=== PATIENT | male | born 1970 | race Caucasian/White ===

== ENCOUNTER → 2016-12-03 | Outpatient (CLI) | payer BC ==
[~2016-12-03] VITALS: Ht 188 cm; Wt 97.5 kg
[~2016-12-03] MED LIST: TRAMADOL 50 MG50 MG PO; VENTOLIN HFA 1818 GM INH
--- NOTE | ~2016-12-03 | HPC ---
[facility] [address] [place] [address] PAIN MANAGEMENT CONSULTATION Name: JUANI MAURICIO Room #: REG [facility]#: [id number] Admission: 12/03/16 Attend Phys: Edy Adams DO Discharge: Date of : 74 Report #: [id number] THIS REPORT FOR: //name// CC: ABIGAIL physician/PCP ESTRELLITA Adams DATE OF SERVICE: 12/03/2016 HISTORY OF PRESENT ILLNESS: The patient is a pleasant 46-year-old gentleman seen in consultation at request of Dr. Nance for assistance with management of cervical radicular pain radiating to the neck, right shoulder, arm down to the hand including the ring and fifth finger. The patient notes prior symptoms treated 4 years ago in [place] with cervical epidural injections, excellent improvement of symptoms. Pain recurred in May without antecedent trauma and overuse. The patient has had caregiver services home, physical therapy and nonsteroidal anti-inflammatory medications with nominal efficacy, has some subjective weakness in the right arm and no specific lower extremity myelopathic symptoms. Does have paresthesia into the right fourth and fifth finger. Describes constant, burning, shooting, sharp pain, rates anywhere from 5-9 on a 0-10 visual analog scale. Seems to be exacerbated with any activity, nothing seems to make it better. REVIEW OF SYSTEMS: Complete review of systems attached to chart, was gone over with the patient. He is . He smokes less than a pack a day, but has for 10 years. Does not drink alcohol to excess. Has enjoyed reasonably good health, has some reactive airway disease for which he uses an albuterol, MDI inhaler. Had a hernia surgery 40 years ago and the aforementioned cervical radicular symptoms some 4 years ago. The patient works as a assistant business manager; he continued to work despite pain. Pain impact score is fairly low averaging 33/70. PHYSICAL EXAMINATION: GENERAL: Reveals a fairly muscular, 6 feet 2 inches, 215 pound gentleman, BMI is 27.6 kilograms per meter squared. Blood pressure is 120/82, pulse 63, respirations 16. Alert and oriented to person, place and time, judged to be reasonable historian. Cervical range of motion is limited. Positive Lhermitte's. Again, fairly muscular gentleman, hard to detect. OBJECTIVE: Muscle loss, but he subjectively notes that his triceps strength is weaker on the right. Tinel's is negative, right triceps reflex is slightly diminished compared to the left. HEART: Regular rhythmical. LUNGS: Clear to auscultation. [facility] [address] [place] [address] PAIN MANAGEMENT CONSULTATION Name: JUANI MAURICIO Room #: REG [facility] Dyllan.#: [id number] Admission: 12/03/16 Attend Phys: Edy Adams DO Discharge: Date of : 74 Report #: [id number] ABDOMEN: Benign. MUSCULOSKELETAL Gait is tandem. DIAGNOSTIC STUDIES: Reviewed including x-rays of the cervical spine from 11/30/2016 noting degenerative disk disease at C5-C6 and C6-C7, loss of cervical lordosis, osteophyte formation noted in vertebral bodies 5, 6, and 7. ASSESSMENT: Symptomatic cervical radiculopathy by clinical exam. RECOMMENDATIONS: Cervical epidural injection under fluoroscopy today. Continue Aleve [id number] 2 tablets b.i.d. Follow up in 4 weeks for reevaluation. Thank you for allowing me to participate in the patient's care. I will keep you abreast of his progress. PROCEDURE: Cervical epidural injection under fluoroscopy. PROCEDURE NOTE: After written and informed consent was obtained including risk of dural puncture, spinal cord trauma, paralysis and increased pain, the patient was taken to the fluoroscopy suite and placed in the prone position, with appropriate abdominal bolstering, neck was flexed, palms under the thighs. Skin was prepped with ChloraPrep. Sterile draping was applied. Skin wheal with 1% Xylocaine was raised. A 22-gauge 3-1/2 inch epidural Tuohy needle was placed via a midline approach at the C7-T1 interspace, advanced under biplanar fluoroscopy using continuous loss of resistance. With appropriate loss of resistance at the expected depth on lateral view, the glass loss of resistance syringe was disconnected. A low volume extension tubing was connected to the needle and a 5 mL syringe. Negative aspiration for cerebrospinal fluid or blood was noted. A 1 mL of Omnipaque was injected which showed spread within the epidural space on biplanar fluoroscopy. This was followed with 80 mg of triamcinolone plus 1 mL of 1.5% preservative Xylocaine. Needle was withdrawn to the interspinous ligament, 0.5 mL of Xylocaine was used to flush the needle. The needle was then completely withdrawn. The area was cleansed. Band-Aid was applied. The patient was allowed to move off the procedure table and ambulated to the recovery room, monitored for an appropriate period of time, discharged in good and stable condition. <ELECTRONICALLY SIGNED> By: Edy Adams DO 12/04/16 0736 [id number] Edy Adams, DO /nt
[2016-12-03 13:15] VITALS: BP 120/82
== END | disposition home or self-care (01) ==
LOC: PAIN 08:22
DX: M54.12 Radiculopathy, cervical region (principal); Z87.891 Personal history of nicotine dependence

== ENCOUNTER → 2017-01-01 | Outpatient (CLI) | payer BC ==
[~2017-01-01] VITALS: Ht 188 cm; Wt 96.6 kg
--- NOTE | ~2017-01-01 | HPC ---
[facility] [place] [address] PAIN MANAGEMENT CONSULTATION Name: JUANI MAURICIO Room #: REG [facility]#: [id number] Admission: 01/01/17 Attend Phys: Edy Adams DO Discharge: Date of : 74 Report #: [id number] THIS REPORT FOR: //name// CC: [facility]IGAIL physician/PCP Edy Adams HISTORY OF PRESENT ILLNESS: The patient is a 46-year-old gentleman, prior seen on 12/03/2016 for symptomatic cervical radiculopathy, given a single cervical epidural injection. He returns to pain clinic today noting about 80% overall improvement of baseline pain, still notes that the pain interferes with function, it is particularly when he is trying to workout. Pain in the right neck, shoulder and arm. PHYSICAL EXAMINATION: Shows positive Lhermitte's in an otherwise 46-year-old gentleman. BMI is 27.3 kilograms per meter squared. Vital signs stable. ASSESSMENT: Symptomatic cervical radiculopathy. RECOMMENDATIONS: Repeat epidural injection under fluoroscopy today, follow up simply as needed, to continue Aleve [id number]. PROCEDURE: Cervical epidural injection under fluoroscopy. PROCEDURE NOTE: After written and informed consent was obtained including risk of dural puncture, spinal cord trauma, paralysis and increased pain, the patient was taken to the fluoroscopy suite and placed in the prone position, with appropriate abdominal bolstering, neck was flexed, palms under the thighs. Skin was prepped with ChloraPrep. Sterile draping was applied. Skin wheal with 1% Xylocaine was raised. A 22-gauge 3-1/2 inch epidural Tuohy needle was placed via a midline approach at the C7-T1 interspace, advanced under biplanar fluoroscopy using continuous loss of resistance. With appropriate loss of resistance at the expected depth on lateral view, the glass loss of resistance syringe was disconnected. A low volume extension tubing was connected to the needle and a 5 mL syringe. Negative aspiration for cerebrospinal fluid or blood was noted. A 1 mL of Omnipaque was injected which showed spread within the epidural space on biplanar fluoroscopy. This was followed with 80 mg of triamcinolone plus 1 mL of 1.5% preservative Xylocaine. Needle was withdrawn to the interspinous ligament, 0.5 mL of Xylocaine was used to flush the needle. The needle was then completely withdrawn. The area was cleansed. Band-Aid was applied. The patient was allowed to move off the procedure table and ambulated to the recovery room, monitored for an appropriate period of time, discharged in good and stable condition. <ELECTRONICALLY SIGNED> By: Edy Adams DO 01/06/17 0758 [id number] Edy Adams DO /nt
[2017-01-01 13:19] VITALS: BP 138/82
== END ==
LOC: PAIN 07:08
DX: M54.12 Radiculopathy, cervical region (principal); F17.210 Nicotine dependence, cigarettes, uncomplicated; E11.9 Type 2 diabetes mellitus without complications

== ENCOUNTER → 2017-09-20 | Outpatient (CLI) | payer BC ==
[~2017-09-20] VITALS: Ht 188 cm; Wt 102.0 kg
[~2017-09-20] MED LIST changes: +ALEVE220 MG PO; +IBUPROFEN 200200 M1 PO
--- NOTE | ~2017-09-20 | HPC ---
[facility] [place] [address] PAIN MANAGEMENT CONSULTATION Name: JUANI MAURICIO Room #: [facility] [id number] Admission: 09/20/17 Attend Phys: Edy Adams DO Discharge: Date of : 74 Report #: [id number] THIS REPORT FOR: //name// CC: [facility] physician/PCP Edy Adams HISTORY OF PRESENT ILLNESS: The patient is a pleasant 47-year-old gentleman, prior seen for 2 cervical epidural injections in November and December of last year with excellent improvement of symptoms. The patient returns to pain clinic today noting symptoms are beginning to recur. Pain is 5/10, but biggest issue is paresthesia in the C7 and 8 distribution affecting all the distal fingers. PHYSICAL EXAMINATION: Shows a pleasant 47-year-old gentleman, BMI is 28.9 kilograms per meter squared. Vital signs are stable. Cervical range of motion shows positive Lhermitte's. Strength is symmetric. He does smoke and was counseled regarding same. He has a positive Tinel over the bilateral ulnar, but with symptoms going into the thumb and index finger and symptoms radiating up in the arm and shoulder with positive Lhermitte's. This looks much more cervical radicular in nature. ASSESSMENT: Symptomatic cervical radiculopathy with clinical exam and history. RECOMMENDATION: 1. MRI of the cervical spine. 2. CSI today. 3. Follow up with neurosurgery for possible definitive intervention. ASSESSMENT: Symptomatic cervical radiculopathy. PROCEDURE: Cervical epidural injection under fluoroscopy. PROCEDURE NOTE: After written and informed consent was obtained including risk of dural puncture, spinal cord trauma, paralysis and increased pain, the patient was taken to the fluoroscopy suite and placed in the prone position, with appropriate abdominal bolstering, neck was flexed, palms under the thighs. Skin was prepped with ChloraPrep. Sterile draping was applied. Skin wheal with 1% Xylocaine was raised. A 22-gauge 3-1/2 inch epidural Tuohy needle was placed via a midline approach at the C7-T1 interspace, advanced under biplanar fluoroscopy using continuous loss of resistance. With appropriate loss of resistance at the expected depth on lateral view, the glass loss of resistance syringe was disconnected. A low volume extension tubing was connected to the needle and a 5 mL syringe. Negative aspiration for cerebrospinal fluid or blood was noted. A 1 mL of Omnipaque was injected which showed spread within the epidural space on biplanar fluoroscopy. This was followed with 80 mg of triamcinolone plus 1 mL of 1.5% preservative Xylocaine. Needle was withdrawn to the interspinous ligament, 0.5 mL of Xylocaine was used to flush the needle. The needle was then completely withdrawn. The area was cleansed. Band-Aid was [address] [address] PAIN MANAGEMENT CONSULTATION Name: JUANI MAURICIO Room #: REG [facility] Walker#: [id number] Admission: 09/20/17 Attend Phys: Edy Adams DO Discharge: Date of : 74 Report #: [id number] applied. The patient was allowed to move off the procedure table and ambulated to the recovery room, monitored for an appropriate period of time, discharged in good and stable condition. <ELECTRONICALLY SIGNED> By: Edy Adams DO 09/22/17 0811 1546 Edy Adams DO /nt
[2017-09-20 13:35] VITALS: BP 123/73
== END | disposition home or self-care (01) ==
LOC: PAIN 07:05
DX: M54.12 Radiculopathy, cervical region (principal); G89.29 Other chronic pain; F17.210 Nicotine dependence, cigarettes, uncomplicated; Z98.890 Other specified postprocedural states

== ENCOUNTER → 2017-09-24 | Outpatient (CLI) | payer BC | LOC: MRI 08:40 | DX: M48.02 Spinal stenosis, cervical region (principal); M54.12 Radiculopathy, cervical region; M50.222 Other cervical disc displacement at C5-C6 level; M25.78 Osteophyte, vertebrae; M47.892 Other spondylosis, cervical region ==

== ENCOUNTER → 2018-11-23 | Outpatient (CLI) | payer BC ==
[~2018-11-23] VITALS: Ht 188 cm; Wt 105.5 kg
[~2018-11-23] MED LIST changes: +AMITRIPTYLINE H25 M2 PO
--- NOTE | ~2018-11-23 | HPC ---
[facility] [address] [address] PAIN MANAGEMENT CONSULTATION Name: JUANI MAURICIO Room #: REG [facility] JuanJoseZachary.#: [id number] Admission: 11/23/18 ������������������ Attend Phys: Hector Lakhani MD Discharge: ������������������ Date of : 74 Report #: [id number] THIS REPORT FOR: //name// CC: [facility] physician/PCP Hector Lakhani DATE OF SERVICE: 11/23/2018 CHIEF COMPLAINT: Here for a cervical epidural steroid injection. I have had them in the past and they have been helpful. FOLLOWUP HISTORY: The patient is a 48-year-old gentleman who has had cervical radicular problems since 2017. He has undergone epidural steroid injections and gleaned about 70% improvement from that. He returns to the pain clinic. This is my first visit with the patient. 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 Epidural steroid injections have for the most part been the most beneficial. He has been experiencing pain in his right fourth and fifth finger. Described as a shooting type of pain and discomfort. Has not had surgery on his neck. ALLERGIES: No known drug allergies. CURRENT MEDICATIONS: Naprosyn 220 mg q. 12 hours, ibuprofen p.r.n. 200 mg b.i.d. p.r.n., albuterol inhaled puffs p.r.n. PAST MEDICAL HISTORY: Asthma, seasonal. PAST SURGICAL HISTORY: Hernia repair about 40 years ago, cortisone injections in the neck in the past. SOCIAL HISTORY: He works as a it business systems analyst. He is working at this juncture. REVIEW OF SYSTEMS: Generally good health, asthma, otherwise unremarkable. LABORATORY DATA: The patient has no new laboratory values available at the time of our interview. PAIN CLINIC ASSESSMENT/PQRS: 1. History of osteoarthritis. The patient is not being treated for osteoarthritis. He has not been treated for rheumatoid arthritis. 2. Height 6 feet 2 inches, weight 224 pounds, BMI is 28.9. 3. Vital Signs: Blood pressure 123/73, pulse 75, respiratory rate 16, room air saturation 95%. 4. Pain intensity 12/30. [facility] [address] [place] [address] PAIN MANAGEMENT CONSULTATION Name: JUANI MAURICIO Room #: REG [facility]#: [id number] Admission: 11/23/18 ������������������ Attend Phys: Hector Lakhani MD Discharge: ������������������ Date of : 74 Report #: [id number] 5. Fall history. The patient has not fallen in the last 3 months. 6. Blood thinner. The patient is not on a blood thinning medication. 7. Hypertension. The patient has not been treated for hypertension. 8. Opioids greater than 6 weeks. The patient is not on an opioid regimen. 9. Risk assessment too low for opioid use. 10. Functional assessment tool. 11. Recreational drug use. The patient denies use of recreational drugs. 12. Tobacco: The patient smokes one-half pack of cigarettes per day. Discussed the benefits of smoking cessation. 13. Alcohol: The patient drinks about 3 alcoholic beverages a week. PHYSICAL EXAMINATION: GENERAL: The patient is a well-developed, well-nourished white male. Appears his stated age. He is alert and oriented x 3. His affect is appropriate. Speech is fluent. HEENT: Normocephalic, atraumatic. Extraocular eye muscles intact. Sclerae nonicteric. Mucous membranes are moist. NECK: Without adenopathy or JVD. The patient has pain and discomfort which is radiating down his left side with involvement of his fingers. Notes some numbness and tingling in the middle finger and small fingers. Deep tendon reflexes are +2 for the left and the right biceps. Muscle strength is judged to be 5+ on the right and 5- on the left. The patient without significant scoliosis, kyphosis or lordosis. Lower extremity muscle strength is judged to be 5/5. Deep tendon reflexes are 2+1 for the knees, absent at the patellar area. IMPRESSION: History of cervical radiculopathy, which has improved with epidural steroid injections in the past. RECOMMENDATIONS: We discussed treatment options with the patient. Risks and benefits of a cervical epidural steroid injection were again discussed. They include but are not limited to infection, worsening pain, no improvement in pain, nerve trauma, bleeding. The patient elects to proceed. PROCEDURE NOTE: The patient was taken to the procedure area. He was assisted in getting on examination table. His neck was sterilely prepped with a Betadine solution. A pillow was placed under his shoulders to bolster improve positioning. Fluoroscopy using anterior, posterior as well as lateral viewing were implemented. A 25-gauge needle was then advanced into the C7-T1 interspace. A 0.25% bupivacaine was infiltrated in this area. A 17-gauge Tuohy with loss of resistance technique using a left paramedian approach was undertaken. After appropriate placement, aspiration was negative. A total of 120 mg triamcinolone was injected. A total of 15 seconds fluoroscopy time was used. The patient's pain decreased to 3 at the time of discharge. He will follow up in the future as needed. [address] [address] PAIN MANAGEMENT CONSULTATION Name: JUANI MAURICIO Room #: REG [facility] Mijares.#: [id number] Admission: 11/23/18 ������������������ Attend Phys: Hector Lakhani MD Discharge: ������������������ Date of : 74 Report #: [id number] We would like to thank you for letting us participate in his care. We hope he continues to improve. ��������������������������������������������� ���������������������������������������� By: ��������������������������������������������� 0919 1407 Hector Lakhani MD /VANGIE
[2018-11-23 09:44] VITALS: BP 117/79
--- NOTE | 2018-11-23 09:55 | NUR ---
Pain Clinic Assessment: 1. History of Osteoarthritis: Not Applicable History of Rheumatoid Arthritis: Not Applicable 2. Height: 6 ft. 2 in. 188.0 cm. Weight: 232.6 lb. oz. 105.507 kg. Patient's BMI: 29.9 3. Vital Signs: BP: 117/79 Pulse: 69 Resp: 16 Temp: 02 Sat: 98 ECG Mon: 4. Pain Intensity: 7-8 5. Fall Risk: Dizziness: N Needs help standing or walking: N Fallen in the last 3 months: N Fall risk comments: 6. Patient on Blood Thinner: None 7. History of Hypertension: N 8. Opioid Therapy greater than 6 weeks: N Opiate Contract Signed: 9. Risk Assessment Tool Provided: 10. Functional Assessment Tool: 11. Recreational Drug Use: Never Drug Type: Tobacco Use: Light Tobacco Smoker Tobacco Type: Amount or Packs/day: How Many Years: Alcohol Use: Yes Frequency: Quant:
--- NOTE | 2018-11-30 14:24 | NUR ---
PATIENT HAD A VIDAL ON 11/23/18-HE REPORTS HAVING A 60% REDUCTION IN HIS PAIN AND PLANS ON KEEPING HIS DECEMBER APPOINTMENT,HOPE IS TO REDUCE PAIN EVEN MORE. HE STATES HE IS ABLE TO FUNCTION AT WORK AND HOME. CS 11/30/18
== END | disposition home or self-care (01) ==
LOC: PAIN 06:48
DX: M54.12 Radiculopathy, cervical region (principal); Z79.899 Other long term (current) drug therapy; Z98.890 Other specified postprocedural states; J45.909 Unspecified asthma, uncomplicated; I10 Essential (primary) hypertension; F11.20 Opioid dependence, uncomplicated